=== PATIENT | female | born 1995 | race Caucasian/White ===

== ENCOUNTER 2023-10-25 15:58 | Emergency (ER) | payer OTHER, SELFPAY ==
[2023-10-25 15:59] VITALS: BP 145/100; PULSE 121; RESP 18; TEMP 36.6; O2SAT 100
--- NOTE | 2023-10-25 16:22 | EKG12_ITS ---
Test Reason : PALP Blood Pressure : / mmHG Vent. Rate : 111 BPM Atrial Rate : 111 BPM P-R Int : 148 ms QRS Dur : 080 ms QT Int : 328 ms P-R-T Axes : 070 082 -46 degrees QTc Int : 446 ms Sinus tachycardia Possible Left atrial enlargement ST & T wave abnormality, consider inferolateral ischemia Abnormal ECG Confirmed by ZHANG ASHLEY, KASEY ([id number]), society editor PAYAL ASHFORD ([id number]) on 10/27/2023 9:35:08 AM Referred By: BRITTON/PRADEEP Confirmed By:KASEY HOLCOMB MD
--- NOTE | 2023-10-25 16:45 | RAD_ITS ---
STUDY: X-RAY CHEST REASON FOR EXAM: Female, 28 years old. chest pain TECHNIQUE: PA COMPARISON: None. FINDINGS: The lungs are clear and expanded. There is no demonstrated pleural abnormality. Normal size heart. Normal mediastinum and adolfo. Normal visualized pulmonary arteries. Normal visualized aortic arch and descending thoracic aorta. Normal visualized thoracic spine. Normal visualized ribs, clavicles, and shoulders. There is no demonstrated abnormality of the visualized soft tissue structures of the upper abdomen. RAD/Chest 1 View (Portable) IMPRESSION: Normal x-ray examination of the chest. Electronically Signed: Blayne Theodore MD at 17:04 EDT ,
[2023-10-25 16:48] LABS: Absolute Lymphocyte Count 1.49 X10^3/uL (0.83-4.51); Absolute Neutrophil Count 3.2 X10^3/uL (2.0-7.7); Basophil# 0.06 X10^3/uL; Basophil% 1.2 % (0-1); Eosinophil# 0.12 X10^3/uL; Eosinophils% 2.3 % (0-5); Hematocrit 41.7 % (37-47); Hemoglobin 13.6 g/dL (12.0-15.0); Lymphocyte # 1.49 X10^3/ul (0.83-4.51); Lymphocyte % 28.7 % (19-41); Mean Corp Hgb Conc 32.6 g/dL (32-36); Mean Corpuscular Hgb 26.3 pg (27.0-32.0); Mean Corpuscular Volume 80.5 fL (81-99); Mean Platelet Vol. 10.3 fl (6.2-12.0); Monocyte# 0.35 X10^3/uL; Monocyte% 6.7 % (0-10); NRBC Flagged by Analyzer 0 % (0-5); Neutrophil # 3.16 X10^3/uL (2.7-7.7); Neutrophil % 60.9 % (47-70); Platelet Count 239 K/mm3 (150-450); RBC Distribution Width CV 14.6 % (11.6-14.6); RBC Distribution Width SD 42.4 fl (35.1-43.9); Red Blood Count 5.18 M/mm3 (4.2-5.4); White Blood Count 5.2 K/mm3 (4.4-11.0)
[2023-10-25 17:22] LABS: Anion Gap 9 (5-15); BUN 9 mg/dL (7-18); Calcium,Total 9.3 mg/dL (8.5-10.1); Chloride 107 mmol/L (98-107); Creatinine, Serum 0.75 mg/dL (0.55-1.02); EST Glomerular Filtration Rate 96 mL/min (>60); Est Glom Filt Rate - Afr Amer 117 mL/min (>60); Glucose 95 mg/dL (74-106); Potassium 3.1 mmol/L (3.5-5.1); Sodium Level 139 mmol/L (136-145); Troponin-I HS (w/2H Reflex) 7 pg/mL (3.0-54.0)
[2023-10-25 18:33] LABS: Reflex Troponin-HS? (from REC) Y
[2023-10-25 19:18] VITALS: BMI 22.7
[2023-10-25 19:19] VITALS: BP 140/90; PULSE 92; RESP 16; O2SAT 100
--- NOTE | 2023-10-25 19:44 | EDS_ITS ---
HPI History of Present Illness Chief Complaint: Palpitations Informant: patient Onset/Context/Timing Onset: Today and Hours (2) Activity at onset: sudden Timing: Intermittent Location: Substernal and Left Chest Worsened By: Nothing Relieved By: - (Laying on her back) Associated Symptoms: Positive for Palpitations; Negative for Nausea, Vomiting, Diaphoresis, Dyspnea, Cough, Fever, Lightheadedness or Acid Reflux Narrative Narrative: Patient presents with chest pain that began today at approximately 2:20 PM. Patient states it began rather suddenly. Patient states that resolved just prior to arrival in the emergency department. Patient states it is better when she is able to lay on her back. Patient states she felt like her heart was racing. Patient states it is over the substernal and left chest area. Patient states nothing makes it worse. Patient denies any shortness of breath or cough. Patient denies any diaphoresis. Patient denies any nausea or vomiting. CVD Risk Factors: Negative for Hypertension, Diabetes, Hypercholesterolemia, Family History 1' </=55 or Smoking PE Risk Factors: Negative for Recent Travel/Surgery, Recent Immobilization, Prior DVT or PE, Cancer or OCP + Smoking + >/=35 [facility] Medical History Depression Home Medications ?Medication ?Instructions ?Recorded ?Last Taken ?Type sertraline 50 mg PO BID 08/21/23 Unknown History alprazolam 0.5 mg tablet 0.5 mg PO TID PRN anxiety 10/25/23 Unknown History Allergy/AdvReac Type Severity Reaction Status Date / Time No Known Allergies Allergy Verified 10/25/23 16:01 Surgical History no surgical history no surgical history Social History Smoking Status: Never smoker ROS ROS ED Constitutional Constitutional ED: Denies chills or fever(s) Eyes Eyes: Denies blurry vision or change in vision ENT ENT ED: Reports sore throat; Denies rhinorrhea Cardiovascular Cardiovascular: Reports chest pain, palpitations and racing heartbeat Respiratory/Chest Respiratory/Chest: Denies cough or dyspnea Gastrointestinal Gastrointestinal: Denies nausea or vomiting Genitourinary Genitourinary ED: Denies dysuria or hematuria Musculoskeletal Musculoskeletal: Denies back pain or neck pain Integumentary Denies abscess or rash Neurologic Neurologic: Reports headache(s); Denies weakness Allergic/Immunologic Allergic/Immunologic ED: Denies mouth swelling or urticaria EXAM Physical Exam Const Vital Signs: 10/25/23 15:59 10/25/23 19:19 10/25/23 19:19 Temperature 98 F Temperature Source Temporal Pulse Rate 121 H 92 Respiratory Rate 18 16 Respiratory Effort Blood Pressure 145/100 H 140/90 H Blood Pressure Mean 115 106 Pulse Ox 100 100 100 Oxygen Delivery Method Room Air Room Air Room Air 10/25/23 19:20 10/25/23 21:00 Temperature Temperature Source Pulse Rate 85 Respiratory Rate 18 Respiratory Effort Normal Non-Labored Blood Pressure 120/78 Blood Pressure Mean 92 Pulse Ox 100 Oxygen Delivery Method Room Air Positive well nourished and well developed General Appearance ED: well developed and NAD HEENT Reports moist mucous membranes normocephalic and atraumatic Neck supple and no JVD Resp normal respiratory effort and clear to auscultation bilaterally Cardio regular rate and regular rhythm GI soft to palpation, non-tender and non-distended Extremity normal to inspection General Extremety ED: Negative for edema or tenderness General Extremity: Negative for edema Neuro oriented x3, CN's II-XII intact bilaterally and no sensory deficits noted Sensorium / Orientation: awake and alert Motor Exam: strength 5/5 throughout Psych mental status grossly normal Heart Score History: Slightly/Non-Suspicious ECG: Nonspecific Repolarization Age: </= 45 years Risk Factors: No Risk Factors Troponin: </= Normal Limit Score: 1 MDM MDM MDM Narrative Medical decision making narrative: Differential diagnosis includes cardiac dysrhythmia, cardiac ischemia, electrolyte abnormality, pneumonia, pneumothorax, , and anxiety. EKG will be obtained to assess for cardiac dysrhythmia and cardiac ischemia. Chest x-ray will be obtained to assess for pneumonia and pneumothorax. CBC will be obtained to assess for leukocytosis and anemia. Basic metabolic profile will be obtained to assess for electrolyte abnormality and renal function. High- sensitivity troponin will be obtained to assess for cardiac ischemia. 2-hour repeat high-sensitivity troponin will be obtained to assess for ongoing cardiac ischemia. Serum hCG will be obtained to assess for . Lab Data Attestation: I reviewed the patient's lab results. Lab results narrative: CBC was reviewed and was within normal limits. Basic metabolic profile was reviewed. Potassium was low at 3.1. The remainder is within normal limits. High-sensitivity troponin was reviewed and was normal at 7. 2-hour repeat high- sensitivity troponin was reviewed and was normal at 21. Serum hCG was reviewed and was negative. Labs: Laboratory Results - last 24 hr 10/25/23 10/25/23 10/25/23 15:22 19:37 21:32 WBC 5.2 RBC 5.18 Hgb 13.6 Hct 41.7 MCV 80.5 L MCH 26.3 L MCHC 32.6 RDW Std Deviation 42.4 RDW Coeff of Katie 14.6 Plt Count 239 MPV 10.3 Immature Gran % (Auto) 0.200 Neut % (Auto) 60.9 Lymph % (Auto) 28.7 [place] % (Auto) 6.7 Eos % (Auto) 2.3 Baso % (Auto) 1.2 H Absolute Neuts (auto) 3.2 Absolute Lymphs (auto) 1.49 Nucleated RBC % 0 Sodium 139 Potassium 3.1 L Chloride 107 Carbon Dioxide 23.0 Anion Gap 9 BUN 9 Creatinine 0.75 Est GFR (MDRD) Af Amer 117 Est GFR (MDRD) Non-Af 96 BUN/Creatinine Ratio 12.0 Glucose 95 Calcium 9.3 Troponin I High Sens 7 21 Serum , Qual NEGATIVE Radiography Chest X-Ray - ED: 1 View, Read by ED Physician, Read by Radiologist and No Acute Disease Diagnostic Testing: Clinical Impression(s) from Imaging Studies Chest X-Ray 10/25/23 16:45 IMPRESSION: Normal x-ray examination of the chest. Electronically Signed: Blayne Theodore MD at 17:04 EDT Reading Location ID and State: [facility] / [place] Tel , Service support , Portable 1 view chest x-ray was obtained. On my independent interpretation, lung swift are clear. There is normal cardiac silhouette. Bony thorax is normal. There is no acute process noted. Radiologist also interpreted the x- ray and agrees. EKG Initial EKG: Attestation: I personally reviewed and interpreted this EKG as follows: Interpretation: Sinus Tachycardia (111) and Non-Specific ST Changes Comments: EKG was obtained. On my independent interpretation, it shows sinus tachycardia at 111. NM interval was normal at 148 ms. QRS interval was normal at 80 ms. QTc interval was normal at 446 ms. [place] was normal. There a re nonspecific ST-T wave changes in the inferior and lateral leads. There are no prior EKGs available for comparison. Prior EKG tracings: not available for review Prior: No Prior Treatment and Re-Evaluation :: Patient was resting comfortably on reevaluation. Patient was given a dose of potassium here. Patient's heart rate improved to 85. Patient and family were advised of the findings. Patient was instructed to follow-up with her primary care physician in 5 to 7 days. Patient and family understood and were agreeable with the plan. All questions were answered. Discharge Plan Triage Chief Complaint: Palpitations ED Provider: Anatoliy Simpson Dx/Rx/DC Orders Clinical Impression: Palpitations, Hypokalemia Instructions: ED Hypokalemia Prescriptions: No Action sertraline [Zoloft] 50 mg PO BID alprazolam 0.5 mg tablet 0.5 mg PO TID PRN (Reason: anxiety) Primary Care Provider: Ramesh Santana Referrals: Ramesh Santana DO [Primary Care Provider] - 3-5 Days Print Language: German Disposition Disposition: Home, Self Care
[2023-10-25 20:06] LABS: Troponin-I HS 21 pg/mL (3.0-54.0)
[2023-10-25 21:00] VITALS: BP 120/78; PULSE 85; RESP 18; O2SAT 100
[2023-10-25] MEDS: Potassium Chloride Oral Tablet 20 MEQ 40 MEQ PO (21:42)
[2023-10-25 22:02] LABS: Internal QC Validated? YES +Cl - CLEAR BKGD; Pregnancy, Serum, hCG Quali. NEGATIVE Negative
[2023-10-25 22:49] VITALS: BP 124/77; PULSE 91; RESP 19; TEMP 36.6; O2SAT 99
== END 2023-10-25 23:02 | disposition home or self-care (01) ==
PROVIDERS: Emergency Provider Emergency Medicine; PCP Family Medicine; Visit Provider Emergency Medicine
DX: R00.2 Palpitations (principal); E87.6 Hypokalemia; F32.A Depression, unspecified; Z79.899 Other long term (current) drug therapy
CPT/HCPCS: 71045; 80048; 84484; 84703; 85025; 93005; 99285